=== PATIENT | male | born 1960 | race African-American/Black ===

== ENCOUNTER 2025-08-25 03:26 | Emergency (ER) | payer OTHER ==
[2025-08-25] MEDS ORDERED: KETOROLAC 10 MG TAB ONE (03:50)
[2025-08-25] MEDS ORDERED: ACETAMINOPHEN 500 MG TAB ONE (03:50)
[2025-08-25] MEDS ORDERED: LIDOCAINE 1% 20 ML MDV ONE (03:50)
[2025-08-25] MEDS ORDERED: METOCLOPRAMIDE 5 MG TAB ONE (03:51)
[2025-08-25] MEDS ORDERED: TDAP (DIPHTH,PERTUSS(ACELL),TET VAC) 0.5 ML VIAL IMVAC ONE (03:51)
--- NOTE | 2025-08-25 05:12 | ER ---
Nurse's Notes [facility] Name: Garret De La Cruz Age: 65 yrs Sex: Male : 1960 Arrival Date: 08/25/2025 Time: 03:26 Bed 5 Private MD: Diagnosis: Acute right eyebrow laceration , acute right periorbital contusion Presentation: 08/25 03:48 Chief complaint: Patient states: HIT HEAD ON BEDSIDE TABLE. ROLLED OUT OF BED. vc1 Coronavirus screen: Client denies travel out of the [place] in the last 14 days. At this time, the client does not indicate any symptoms associated with coronavirus-19. Ebola Screen: Patient negative for fever greater than or equal to 101.5 degrees Fahrenheit, and additional compatible Ebola Virus Disease symptoms Patient denies exposure to infectious person. Patient denies travel to an Ebola-affected area in the 21 days before illness onset. No symptoms or risks identified at this time. Initial Sepsis Screen: Does the patient meet any 2 criteria? No. Patient's initial sepsis screen is negative. Does the patient have a suspected source of infection? No. Patient's initial sepsis screen is negative. Risk Assessment: Do you want to hurt yourself or someone else? Patient reports no desire to harm self or others. Onset of symptoms was August 25, 2025. 03:48 Method Of Arrival: Ambulatory vc1 03:48 Acuity: KELLY 4 vc1 03:58 Mechanism of Injury: Laceration sustained at home, while falling, from bedside table. vc1 Triage Assessment: 03:57 General: Appears in no apparent distress. uncomfortable, Behavior is calm, cooperative, vc1 appropriate for age. Pain: Complains of pain in inner aspect of right eyebrow, middle aspect of right eyebrow and right supraorbital ridge Pain does not radiate. Pain currently is 7 out of 10 on a pain scale. Derm: Wound noted inner aspect of right eyebrow, middle aspect of right eyebrow and right supraorbital ridge. Historical: - Allergies: 03:50 No Known Allergies; vc1 - Home Meds: 03:50 benazepril oral [Active]; carvedilol 12.5 mg oral tablet [Active]; vc1 - PMHx: 03:50 None; vc1 - PSHx: 03:50 Appendectomy; vc1 - Immunization history:: Client reports receiving the 2nd dose of the Covid vaccine, Flu vaccine is up to date. - Infectious Disease History:: Denies. - Social history:: Smoking status: Patient denies any tobacco usage or history of. - Family history:: not pertinent. Screenin:57 [facility] ED Fall Risk Assessment (Adult) History of falling in the last 3 months, vc1 including since admission Yes- single mechanical fall (1 pt) Confusion or Disorientation No (0 pts) Intoxicated or Sedated No (0 pts) Impaired Gait No (0 pts) Mobility Assist Device Used No (0 pt) Altered Elimination No (0 pt) Score/Fall Risk Level 0 - 2 = Low Risk Oriented to surroundings, Maintained a safe environment, Educated pt \T\ family on fall prevention, incl call for assistance when getting out of bed, Assessed \T\ reinforced patient's understanding of fall precautions, Hourly rounding (assess needs \T\ fall precautionary measures) done. Abuse screen: Denies injuries from another. Nutritional screening: No deficits noted. Tuberculosis screening: No symptoms or risk factors identified. Assessment: 03:55 General: Appears in no apparent distress. comfortable, Behavior is calm, cooperative, mf3 appropriate for age. Pain: Complains of pain in face Pain currently is 6 out of 10 on a pain scale. 03:55 Neuro: Level of Consciousness is awake, alert, obeys commands, Oriented to person, mf3 place, time. Cardiovascular: Capillary refill < 3 seconds. Respiratory: Airway is patent Trachea midline Respiratory effort is even, unlabored. GI: No signs and/or symptoms were reported involving the gastrointestinal system. : No signs and/or symptoms were reported regarding the genitourinary system. Derm: Skin is healthy with good turgor, Skin is normal. Injury Description: Laceration sustained to forehead is clean, not bleeding, a small amount of bleeding noted at this time. 04:43 Reassessment: Patient and/or family updated on plan of care and expected duration. Pain nh2 level reassessed. Patient is alert, oriented x 3, equal unlabored respirations, skin warm/dry/pink. Patient states feeling better. 04:45 Reassessment: MD at bedside performing laceration repair. nh2 Vital Signs: 03:48 BP 147 / 103; Pulse 54; Resp 16; Temp 96.8; Pulse Ox 98% ; Weight 102.06 kg; Height 6 vc1 ft. 0 in. ; Pain 7/10; 04:43 BP 134 / 98; Pulse 51; Resp 18; Pulse Ox 100% on R/A; nh2 05:03 BP 139 / 100; Pulse 51; Resp 17; Pulse Ox 100% on R/A; bm8 03:48 Body Mass Index 30.52 (102.06 kg, 182.88 cm) vc1 03:48 Pain Scale: Adult vc1 [place] Coma Score: 03:55 Eye Response: spontaneous(4). Verbal Response: oriented(5). Motor Response: obeys mf3 commands(6). Total: 15. 23:50 Eye Response: spontaneous(4). Verbal Response: oriented(5). Motor Response: obeys sp4 commands(6). Total: 15. ED Course: 03:31 Patient arrived in ED. gm2 03:43 Christos Dinh MD is Attending Physician. sp4 03:46 Janes Du Jr, RN is Primary Nurse. nh2 03:50 Triage completed. vc1 03:55 Provided Education on: pt educated on poc and tdap shot . mf3 03:56 Arm band placed on left wrist. vc1 03:57 Patient has correct armband on for positive identification. Bed in low position. Call vc1 light in reach. Pulse ox on. NIBP on. 05:27 Assist provider with laceration repair on forehead that was between 2.6 to 7.5 cm using nh2 sutures. Set up tray. Performed by Christos Dinh MD Dressed with 4X4s, Patient tolerated well. 05:28 Patient did not have IV access during this emergency room visit. nh2 Administered Medications: 04:06 Drug: Ketorolac PO 10 mg PO once Route: PO; 3 05:00 Follow up: Response: No adverse reaction nh2 04:06 Drug: Acetaminophen PO 1000 mg PO once Route: PO; mf3 05:00 Follow up: Response: No adverse reaction nh2 04:06 Drug: MetoCLOPramide PO 10 mg PO once Route: PO; mf3 05:00 Follow up: Response: No adverse reaction nh2 04:06 Drug: Boostrix Tdap IM 0.5 ml IM once; as a single dose {Note: lot [id number] EX 01/22/28, mf3 [employer], .} Route: IM; Site: left deltoid; 05:00 Follow up: Response: No adverse reaction nh2 04:07 Drug: Lidocaine Infiltration (1 %) 20 ml 20 ml Infiltration once; to bedside {Note: mf3 ADMINISTER BY PROVIDER.} Volume: 20 ml; Route: Infiltration; Medication: 03:55 Vaccine Information Statement (VIS) provided today. Questions and/or concerns mf3 addressed. VIS edition date: June 02, 2021. Outcome: 05:11 Discharge ordered by MD. kebede 05:27 Discharged to home ambulatory, nh2 05:27 Condition: stable 05:27 Discharge instructions given to patient, Instructed on discharge instructions, follow up and referral plans. safety practices, Demonstrated understanding of instructions, follow-up care, 05:28 Patient left the ED. nh2 Signatures: Therese Kinney RN RN vc1 Christos Dinh MD MD sp4 Leslie Chowdhury 2 Marco Rogers RN RN bm8 Janes Du Jr, RN RN nh2 Marija Thurman RN RN mf3
--- NOTE | 2025-08-25 05:12 | EDPHYS ---
Physician Documentation [facility] Name: Garret De La Cruz Age: 65 yrs Sex: Male : 1960 Arrival Date: 08/25/2025 Time: 03:26 Bed 5 Private MD: ED Physician Christos Dinh HPI: 08/25 03:43 This 65 yrs old Black Male presents to ER via Unassigned with complaints of Fall sp4 Injury, Laceration, Headache. 23:50 65-year-old male presents with acute fall off the bed acute right supraorbital sp4 contusion and a right eyebrow supraorbital laceration. Patient states he rolled out of the bed during the sleep.. Historical: - Allergies: 03:50 No Known Allergies; vc1 - Home Meds: 03:50 benazepril oral [Active]; carvedilol 12.5 mg oral tablet [Active]; vc1 - PMHx: 03:50 None; vc1 - PSHx: 03:50 Appendectomy; vc1 - Immunization history:: Client reports receiving the 2nd dose of the Covid vaccine, Flu vaccine is up to date. - Infectious Disease History:: Denies. - Social history:: Smoking status: Patient denies any tobacco usage or history of. - Family history:: not pertinent. ROS: 23:50 Constitutional: Negative for fever, chills, and weight loss, positive head injury, sp4 positive supraorbital contusion, positive right eyebrow laceration 23:50 All other systems are negative, Exam: 23:50 Constitutional: This is a well developed, well nourished patient who is awake, alert, sp4 and in no acute distress. Head/Face: Normocephalic, there is a right eyebrow contusion and mild swelling associated with vertical oriented curved laceration of the right mid eyebrow with mild bleeding which is controlled with pressure application Eyes: Pupils equal round and reactive to light, extra-ocular motions intact. Lids and lashes normal. Conjunctiva and sclera are not injected. Cornea within normal limits. Periorbital areas with no swelling, redness, or edema. ENT: Nares patent. No nasal discharge, no septal abnormalities noted. Tympanic membranes are normal and external auditory canals are clear. Oropharynx with no redness, swelling, or masses, exudates, or evidence of obstruction, uvula midline. Mucous membranes moist. Neck: Trachea midline, no thyromegaly or masses palpated, and no cervical lymphadenopathy. Supple, full range of motion without nuchal rigidity, or vertebral point tenderness. Chest/axilla: Normal chest wall appearance and motion. Nontender with no deformity. No lesions are appreciated. Cardiovascular: Regular rate and rhythm with a normal S1 and S2. No gallops, murmurs, or rubs. No pulse deficits. Respiratory: Lungs have equal breath sounds bilaterally, clear to auscultation and percussion. No rales, rhonchi or wheezes noted. No increased work of breathing, no retractions or nasal flaring. Abdomen/GI: Soft, with normal bowel sounds. No distension or tympany. No guarding or rebound. No evidence of tenderness throughout. Back: No spinal tenderness. No costovertebral tenderness. Skin: Warm, dry with normal turgor. Normal color with no rashes, no lesions, and no evidence of cellulitis. MS/ Extremity: Pulses equal, no cyanosis. Neurovascular intact. Full, normal range of motion. Neuro: Awake and alert, GCS 15, oriented to person, place, time, and situation. Cranial nerves II-XII grossly intact. Motor strength 5/5 in all extremities. Sensory grossly intact. Psych: Awake, alert, with orientation to person, place and time. Behavior, mood, and affect are within normal limits Vital Signs: 03:48 BP 147 / 103; Pulse 54; Resp 16; Temp 96.8; Pulse Ox 98% ; Weight 102.06 kg; Height 6 vc1 ft. 0 in. ; Pain 7/10; 04:43 BP 134 / 98; Pulse 51; Resp 18; Pulse Ox 100% on R/A; nh2 05:03 BP 139 / 100; Pulse 51; Resp 17; Pulse Ox 100% on R/A; bm8 03:48 Body Mass Index 30.52 (102.06 kg, 182.88 cm) vc1 03:48 Pain Scale: Adult vc1 [place] Coma Score: 03:55 Eye Response: spontaneous(4). Verbal Response: oriented(5). Motor Response: obeys mf3 commands(6). Total: 15. 23:50 Eye Response: spontaneous(4). Verbal Response: oriented(5). Motor Response: obeys sp4 commands(6). Total: 15. Laceration: 05:12 Wound Repair of 4cm ( 1.6in ) subcutaneous laceration to middle aspect of right eyebrow sp4 - Vertical C shaped laceration directly across eyebrow . Irregularly shaped.. Minimal bleeding noted.. Distal neuro/vascular/tendon intact. Anesthesia: Wound infiltrated with 10 mls of 1% lidocaine. Wound prep: Moderate cleansing by me, Copious irrigation. Skin closed with 8 6-0 Prolene using interrupted sutures and sterile technique. Dressed with Left to air . Patient tolerated well. MDM: 03:47 Medical Screening Exam initiated sp4 23:50 Differential diagnosis: abrasion, closed head injury, contusion, fracture, laceration, sp4 multiple trauma, sprain, strain. Data reviewed: vital signs, nurses notes, old medical records. Consideration of Admission/Observation Escalation of care including admission/observation considered. ED course: Laceration carefully repaired. Patient stable for discharge home. Advise suture removal after 14 days.. 08/25 03:46 Order name: Dressing - Wound; Complete Time: 04:07 sp4 08/25 03:46 Order name: Gloves, Sterile; Complete Time: 04:07 sp4 08/25 03:46 Order name: Setup Suture Tray; Complete Time: 04:07 sp4 Administered Medications: 04:06 Drug: Ketorolac PO 10 mg PO once Route: PO; 3 05:00 Follow up: Response: No adverse reaction nh2 04:06 Drug: Acetaminophen PO 1000 mg PO once Route: PO; mf3 05:00 Follow up: Response: No adverse reaction nh2 04:06 Drug: MetoCLOPramide PO 10 mg PO once Route: PO; mf3 05:00 Follow up: Response: No adverse reaction nh2 04:06 Drug: Boostrix Tdap IM 0.5 ml IM once; as a single dose {Note: lot [id number] EX 01/22/28, mf3 [employer], .} Route: IM; Site: left deltoid; 05:00 Follow up: Response: No adverse reaction nh2 04:07 Drug: Lidocaine Infiltration (1 %) 20 ml 20 ml Infiltration once; to bedside {Note: mf3 ADMINISTER BY PROVIDER.} Volume: 20 ml; Route: Infiltration; Disposition: 23:52 Chart complete. sp4 Disposition Summary: 08/25/25 05:11 Discharge Ordered Notes: Suture removal advised after 14 days Location: Home sp4 Problem: new sp4 Symptoms: have improved sp4 Condition: Stable sp4 Diagnosis - Acute right eyebrow laceration , acute right periorbital contusion sp4 Followup: sp4 - With: Private Physician - When: 10 - 14 days - Reason: Recheck today's complaints Discharge Instructions: - Discharge Summary Sheet sp4 - Facial Laceration, [id number] sp4 Forms: - Patient Portal Instructions sp4 Signatures: Therese Kinney RN RN vc1 Christos Dinh MD MD sp4 Marija Thurman RN RN mf3 Janes Du Jr RN nh2
[2025-08-25 07:47] VITALS: TEMP 96.8
[2025-08-25 07:48] VITALS: O2SAT 100
[2025-08-25 07:49] VITALS: BP 139/100
== END 2025-08-25 05:28 | disposition home or self-care (01) ==
LOC: ER 03:26
DX: S01.111A Laceration without foreign body of right eyelid and periocular area, initial encounter (principal); W06.XXXA Fall from bed, initial encounter; Z23 Encounter for immunization
CPT/HCPCS: 90715; 96372; 99284; 12013; J2003